=== PATIENT | male | born 1990 | race Caucasian/White ===

== ENCOUNTER 2017-03-28 09:21 | Emergency (ER) | payer OTHER ==
[~2017-03-28] VITALS: Ht 160 cm; Wt 70.0 kg
[~2017-03-28 09:21] MED LIST: CYCL-319 PO; DIAZ-90 PO; HYDR-3498 PO; HYDR-762 PO; IBUP-1542 PO; IBUP800T25 PO; PEN500 PO; PHEN100C PO; TRAM50TA2 PO
[2017-03-28 09:29] VITALS: Ht 160 cm; Wt 70.0 kg
[2017-03-28] MEDS ORDERED: SOD CHLORIDE 0.9% 1,000 ML IV STA (09:38)
[2017-03-28] MEDS ORDERED: ONDANSETRON 4 MG INJ IV STA (09:38)
[2017-03-28] MEDS ORDERED: ONDANSETRON (ODT) 4 MG TAB ODT STA (09:58)
[2017-03-28] MEDS ORDERED: IBUPROFEN 800 MG TAB PO ONE (10:00)
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
[2017-03-28] MEDS ORDERED: ONDA4TAB14 PO (10:41)
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
[2017-03-28 11:15] VITALS: BP 113/65; PULSE 70; RESP 19; TEMP 97.9
== END 2017-03-28 11:23 | disposition home or self-care (01) ==
LOC: E/R 09:21
DX: R11.2 Nausea with vomiting, unspecified (principal); R40.2252 Coma scale, best verbal response, oriented, at arrival to emergency department; S60.222A Contusion of left hand, initial encounter; R40.2142 Coma scale, eyes open, spontaneous, at arrival to emergency department; R40.2362 Coma scale, best motor response, obeys commands, at arrival to emergency department; W22.8XXA Striking against or struck by other objects, initial encounter; Y92.9 Unspecified place or not applicable; Z76.5 Malingerer [conscious simulation]
CPT/HCPCS: 73130; 99283; J7030

== ENCOUNTER 2017-09-09 00:14 | Emergency (ER) | payer OTHER ==
[~2017-09-09] VITALS: Ht 180.3 cm; Wt 68.2 kg
[~2017-09-09 00:14] MED LIST changes: +ONDA4TAB14 PO; -PEN500 PO; +PENI500T PO
[2017-09-09 00:35] VITALS: Ht 180.3 cm; Wt 68.2 kg
--- NOTE | 2017-09-09 03:37 | ERD ---
ER Documentation Chief Complaint Chief Complaint bilateral leg pain x 3 months HPI Is a 1 to chronic pain to his legs. Patient had this pain for 2-3 months. Denies any nausea denies vomiting denies any chills. Denies any other current complaints ROS All systems reviewed and are negative except as per history of present illness. Medications Home Meds Active Scripts Ondansetron (Ondansetron Odt) 4 Mg Tab.rapdis, 4 MG PO Q6H Y for NAUSEA AND/OR VOMITING, #30 TAB Prov:TORRES HAMPTON MD 03/28/17 Hydrocodone Bit-Acetaminophen* ([place]*) 5-325 Mg Tab, 1 TAB PO Q6 Y for PAIN, # 10 TAB Prov:YURI BALBUENA NP 02/27/16 Cyclobenzaprine Hcl* (Cyclobenzaprine Hcl*) 10 Mg Tablet, 5 MG PO TID, #30 TAB Prov:YURI BALBUENA NP 02/27/16 Ibuprofen* (Motrin*) 600 Mg Tab, 600 MG PO Q6H Y for PAIN AND OR ELEVATED TEMP, #30 TAB Prov:YURI BALBUENA NP 02/27/16 Phenytoin* Sodium Extended (Dilantin*) 100 Mg Capsule, 100 MG PO TID for 30 Days , CAP Prov:TORRES HAMPTON MD 12/31/15 Ibuprofen* (Motrin*) 800 Mg Tab, 800 MG PO Q6H Y for PAIN AND OR ELEVATED TEMP, #30 TAB Prov:TORRES HAMPTON MD 12/31/15 Diazepam* (Valium*) 5 Mg Tablet, 5 MG PO Q8 Y for MUSCLE SPASMS, #10 TAB Prov:TORRES HAMPTON MD 12/31/15 Hydrocodone Bit-Acetaminophen* ([place]*) 10-325 Mg Tablet, 1 TAB PO Q6 Y for PAIN , #7 TAB Prov:TORRES HAMPTON MD 12/31/15 Penicillin V Potassium* (Penicillin V K*) 500 Mg Tab, 500 MG PO QID for 10 Days , TAB Prov:LILLY SAAB MD 08/09/15 Tramadol HCl (Tramadol HCl) 50 Mg Tab, 50 MG PO Q6 Y for PAIN, #20 TAB Prov:LILLY SAAB MD 08/09/15 Reported Medications Phenytoin* Sodium Extended (Dilantin*) 100 Mg Capsule, 100 MG PO TID, CAP 03/21/14 Allergies Allergies: Coded Allergies: diphenhydramine (Verified Allergy, Unknown, 02/26/16) PMhx/Soc History of Surgery: No Anesthesia Reaction: No Hx Neurological Disorder: Yes (seizure) Hx Respiratory Disorders: No Hx Cardiac Disorders: No Hx Psychiatric Problems: No Hx Miscellaneous Medical Probl: No Hx Alcohol Use: No Hx Substance Use: No Hx Tobacco Use: No Physical Exam Vitals Vital Signs Date Time Temp Pulse Resp B/P Pulse Ox O2 Delivery O2 Flow Rate FiO2 09/09/17 00:35 96.2 82 20 112/61 99 Physical Exam Const: [] Head: Atraumatic Eyes: Normal Conjunctiva ENT: Normal External Ears, Nose and Mouth. Neck: Full range of motion..~ No meningismus. Resp: Clear to auscultation bilaterally Cardio: Regular rate and rhythm, no murmurs Abd: Soft, non tender, non distended. Normal bowel sounds Skin: No petechiae or rashes Back: No midline or flank tenderness Ext: No cyanosis, or edema Neur: Awake and alert Psych: Normal Mood and Affect Procedures/MDM Medical decision-makin-year-old male with chronic pain syndrome. At this point clinically stable for outpatient management. Patient be discharged home. Told to follow primary care physician. Departure Diagnosis: Primary Impression: Chronic pain Chronic pain type: other chronic pain Qualified Code: G89.29 - Other chronic pain Condition: Stable ADAMA KOEHLER Sep 09, 2017 03:37
[2017-09-09 04:05] VITALS: BP 131/92; PULSE 67; RESP 12; TEMP 97.2
== END 2017-09-09 07:04 | disposition home or self-care (01) ==
LOC: E/R 00:14
DX: G89.29 Other chronic pain (principal); M79.605 Pain in left leg; M79.604 Pain in right leg
CPT/HCPCS: 99282